=== PATIENT | female | born 1960 | race Native Hawaiian/Other Pacific Islander ===

== ENCOUNTER 2022-05-16 18:00 | Outpatient (CLI) | payer MEDICAID, SELFPAY | END 2022-05-16 18:01 | disposition home or self-care (01) | LOC: AMB 06-10 20:44 | PROVIDERS: PCP Family Medicine; Visit Provider Family Medicine | DX: K92.1 Melena (principal); R19.7 Diarrhea, unspecified | CPT/HCPCS: A0425; A0429 ==